=== PATIENT | male | born 1955 | race Caucasian/White ===

== ENCOUNTER 2018-12-22 14:50 | Day surgery (SDC) | payer MEDICARE, OTHER, SELFPAY ==
[2018-12-22 15:11] VITALS: BP 133/81; PULSE 59; RESP 16; TEMP 36.8; O2SAT 100; BMI 24.4
[2018-12-22] MEDS: SODIUM CHLORIDE 0.9% 1,000 ML 200 ML IV (15:30)
[2018-12-22] MEDS: MIDAZOLAM 5 MG/5 ML VIAL IV (15:57)
--- NOTE | 2018-12-22 16:03 | PM.HP.1 ---
History of Present Illness Date Patient Seen: 12/22/18 Time Patient Seen: 16:03 Chief complaint: [id number] Narrative: Screening colonoscopy asymptomatic has history of polyps on prior endoscopy Patient History Social History household members: spouse Family & Social History Social History: household members spouse Meds Home Medications Medication Instructions Recorded Confirmed Type No Known Home Medications 12/22/18 12/22/18 History Allergies Allergy/AdvReac Type Severity Reaction Status Date / Time No Known Drug Allergies Allergy Verified 12/22/18 15:11 Review of Systems Review of Systems All systems reviewed & are unremarkable except as noted in HPI and below Exam Vital Signs (past 8 hours): - 12/22/18 15:11 Temperature 98.3 F Pulse Rate 59 L Respiratory Rate 16 Blood Pressure 133/81 Pulse Oximetry 100 Oxygen Delivery Method Room Air Narrative Exam Narrative: Patient is alert and oriented Lungs are clear with no rales or wheezes Heart regular rhythm no murmur Abdomen soft nontender Rectal be done at colonoscopy Assessment & Plan Assessment & Plan narrative: Patient with history prior polypectomies is here for a screening colonoscopy patient is asymptomatic
[2018-12-22] MEDS: fentaNYL 250 MCG/5 ML INJ IV (16:22)
--- NOTE | 2018-12-22 16:26 | PM.OP.ENDO ---
Operative Date/Time/Diagnoses Date of procedure: 12/22/18 Time of procedure: 16:26 Pre-op diagnosis: History of polyps here for screening colonoscopy Post-op diagnosis: same Procedure & Clinicians Study performed: Total colonoscopy to the cecum Same procedure as scheduled: Yes Indications: History of polyps no polyp seen today Surgeon: Nicholas Fernandez Procedure Notes SCOAP/Timeout: Was done Procedure in detail: After surgical pause and proper patient identification flexible fiberoptic colonoscope was inserted transanally to the cecum patient has significant sigmoid diverticulosis but has denny diverticulosis seen throughout the colon. No polyps or tumors were seen. A total of 5 mg of Versed and 200 mg of fentanyl were administered for conscious sedation throughout the procedure which was well tolerated Scope withdrawal time: 7 Sedation minutes: 18 Findings: diverticulosis Impression: Denny diverticulosis no polyps Recommendations: Colonscopy in 5 years
[2018-12-22 16:27] VITALS: BP 123/73; PULSE 68; RESP 16; TEMP 36.2; O2SAT 100
--- NOTE | 2018-12-22 16:29 | P.OP.ENDO_ITS ---
Operative Date/Time/Diagnoses Date of procedure: 12/22/18 Time of procedure: 16:26 Pre-op diagnosis: History of polyps here for screening colonoscopy Post-op diagnosis: same Procedure & Clinicians Study performed: Total colonoscopy to the cecum Same procedure as scheduled: Yes Indications: History of polyps no polyp seen today Surgeon: Nicholas Fernandez Procedure Notes SCOAP/Timeout: Was done Procedure in detail: After surgical pause and proper patient identification flexible fiberoptic colonoscope was inserted transanally to the cecum patient has significant sigmoid diverticulosis but has denny diverticulosis seen thro ughout the colon. No polyps or tumors were seen. A total of 5 mg of Versed and 200 mg of fentanyl were administered for conscious sedation throughout the procedure which was well tolerated Scope withdrawal time: 7 Sedation minutes: 18 Findings: diverticulosis Impression: Denny diverticulosis no polyps Recommendations: Colonscopy in 5 years
[2018-12-22 16:32] VITALS: BP 111/76; PULSE 64; RESP 13; O2SAT 99
[2018-12-22 16:38] VITALS: BP 118/76; PULSE 67; RESP 12; O2SAT 100
[2018-12-22 16:45] VITALS: BP 125/63; PULSE 63; RESP 16; TEMP 36.1; O2SAT 97
== END 2018-12-22 16:55 | disposition home or self-care (01) ==
PROVIDERS: PCP Family Medicine Geriatric Medicine; Visit Provider Surgery
PROC: 0DJD8ZZ Inspection of Lower Intestinal Tract, Via Natural or Artificial Opening Endoscopic (ICD-10-PCS; CPT 45378; principal; 2018-12-22 16:00)
DX: Z86.010 Personal history of colon polyps (principal); K57.30 Diverticulosis of large intestine without perforation or abscess without bleeding
CPT/HCPCS: G0121; 99152; J2250; J3010